=== PATIENT | male | born 1955 | race Caucasian/White ===

== ENCOUNTER 2017-03-29 18:00 | Emergency (ER) | payer OTHER ==
[2017-03-29 18:19] LABS: BASOPHILS 0.4 % (0.0-2.0); EOSINOPHILS 0.5 % (0.0-6.0); HEMATOCRIT 42.3 % (42.0-54.0); HEMOGLOBIN 14.6 g/dL (14.0-18.0); LYMPHOCYTES 22.7 % (20.0-40.0); LYMPHOCYTES# 1.5 X 10^3uL (0.8-3.8); MEAN CELL VOLUME 95.6 fL (80.0-100.0); MEAN CORPUS. HGB CONCENTRATION 34.5 g/dL (32.0-36.0); MEAN PLATELET VOLUME 6.2 fL (7.4-10.4); MONOCYTES 8.8 % (2.0-10.0); MONOCYTES# 0.6 X 10^3uL (0.2-1.0); NEUTROPHILS 67.6 % (54.0-75.0); NEUTROPHILS# 4.5 X 10^3uL (2.6-6.7); PLATELET COUNT 226 X 10^3uL (130-440); RED BLOOD COUNT 4.43 X 10^6uL (4.20-6.10); RED CELL DISTRIBUTION WIDTH 13.7 % (11.5-14.5); WHITE BLOOD COUNT 6.6 X 10^3uL (3.9-10.7)
[2017-03-29] MEDS ORDERED: NITROGLYCERIN 0.4 MG TAB.SUBL SUBLINGUAL ONE (18:19)
[2017-03-29 18:31] LABS: BLOOD UREA NITROGEN 14 mg/dL (9-20); CALCIUM 9.7 mg/dL (8.4-10.2); CHLORIDE 98 mmol/L (98-107); EST GLOMERULAR FILTRATION RATE > 60 mL/min; GLUCOSE 104 mg/dL (70-100); MAGNESIUM 1.6 mg/dL (1.6-2.3); SODIUM 141 mmol/L (137-145)
[2017-03-29 18:33] LABS: INR 0.9
[2017-03-29] MEDS ORDERED: MORPHINE SULFATE 4 MG/ML SYR ONE (18:34)
[2017-03-29 18:42] LABS: TROPONIN I 0.015 ng/mL (0.00-0.034)
--- NOTE | 2017-03-29 19:25 | ER NURSING DOCUMENTATION ---
Nurse's Notes [facility] Name:Jerardo Beal Age:61 yrs Sex:Male :1955 Arrival Date:03/29/2017 Time:18:00 BedTrauma-C Private MD: Diagnosis:Chest Pain, Other Presentation: 03/29 18:00 Presenting complaint: Patient states: pt states that he has not been feeling well all st day. He states that he has been nauseated, lightheaded. Transition of care: patient was not received from another setting of care. AIR CAT ACTIVATION no. Asprin Given Taken by pt captain's assistant Other amount taken captain's assistant: two full asprins. 18:00 Method Of Arrival: Private Vehicle st 18:08 Acuity: LOUISE 2 st Triage Assessment: 18:15 General: Appears uncomfortable, Behavior is agitated, anxious, cooperative. Pain: st Complains of pain in chest Pain currently is 7 out of 10 on a pain scale. Quality of pain is described as pressure, Pain began all day. Cardiovascular: Capillary refill < 3 seconds Heart tones present Reports lightheadedness, Nausea shortness of breath Rhythm is sinus tachycardia. Respiratory: Airway is patent Respiratory effort is even, unlabored, Respiratory pattern is regular, symmetrical. GI: Abdomen is obese, Abd is soft and non tender X 4 quads. Reports nausea. Historical: - Allergies: No known drug Allergies; - Home Meds: 1. Simvastatin Oral 2. losartan oral - PMHx: Hypertension; - PSHx: KNEE SURGERY; - Tetanus: > 10 years will f/u with PCP. - Ebola Screening: : Patient denies exposure to infectious person. Patient denies travel to an Ebola-affected area in the 21 days before illness onset. . - Immunization history: Flu Vaccine < 1 year. - Social history: Smoking status: Patient states was never smoker of tobacco. Patient uses alcohol Patient/guardian denies using marijuana. Screenin:19 Infectious Disease Risk None. Abuse screen: Denies threats or abuse. Denies injuries st from another. pt feels safe at home. Nutritional screening: No deficits noted. Assessment: 18:34 General: pt resting quietly. pt is less anxious now but states that he still feels SOB..st 18:40 Reassessment: Patient states feeling better. PT CONTINUES WITH CHEST TIGHTNESS AND mk2 FEELING SOB. LUNGS ARE CTA, NO RESPIRATORY DISTRESS, PT IS ALERT AND ORIENTED. PT ALSO COMPLAINS OF DIZZINESS. . 19:22 Pain: Pain does not radiate. 2 Vital Signs: 18:02 BP 189 / 114 (auto/); st 18:06 Pulse 94 MON; Resp 14; Temp 97.6; Pulse Ox 96% ; st 18:07 BP 157 / 107 (auto/); st 18:11 Pulse 103 MON; Resp 16; Pulse Ox 96% ; Pain 7/10; st 18:21 Pain 7/10; st 18:32 BP 150 / 95; Pulse 92; Resp 10; Pulse Ox 96% on 2 lpm NC; Pain 6/10; mk2 18:33 Pain 5/10; st 18:45 Pain 3/10; mk2 19:21 BP 179 / 98; Pulse 82; Resp 16; Pulse Ox 93% on R/A; Pain 4/10; mk2 18:33 pt staes that it is not pain just tichtness. ED Course: 18:00 EKG done per protocol. Performed by ED Staff. Shown to ED physician. vt1 18:00 EKG done. (by ED staff). Reviewed by Ean Thompson MD. vt1 18:01 Patient arrived in ED. ama 18:03 Ean Thompson MD is Attending Physician. jm 18:04 Shantal Estrada RN is Primary Nurse. st 18:07 Valuables Remains with patient Patient has correct armband on for positive em3 identification. Placed in gown. Bed in low position. Call light in reach. Side rails up X2. 18:[address] 18:09 EKG attached vt1 18:10 Inserted peripheral IV: 20 gauge in right antecubital area and blood collected. Oxygen st Oxygen administration via nasal cannula @ 2L/min. 18:11 Port Xray Completed. pm1 18:19 banquet houseperson on. Pulse ox on. NIBP on. st 18:39 Resting quietly. mk2 18:39 Report received from SHANTAL. Warm blanket given. mk2 18:45 Primary Nurse role handed off by Shantal Estrada RN 2 18:45 Darshana Forrest, RN is Primary Nurse. mk2 19:23 PT continues with left sided cp 4/10 and appears slightly shaky. Dr. Hahn educates pt mk2 on his new RBBB and pt states he feels comfortable going home and will call if he needs anything. Pt ambulates out of E.D with steady gait. Administered Medications: 18:08 Drug: Nitroglycerin 0.4 mg; Route: Sublingual; st 18:22 Follow up: Response: Pain is unchanged, physician notified st 18:22 Drug: morphine 4 mg; Route: IVP; Site: right antecubital; st 18:32 Follow up: BP 150 / 95; Pulse 92 bpm; Resp 10 bpm; Pulse Ox 96% 2 lpm Nasal Cannula; 2 Pain 6/10 Adult 18:33 Follow up: Response: Pain is decreased st Outcome: 19:05 Discharge ordered by . medhat 19:21 Discharged to home ambulatory. [facility] 19:21 Condition: stable 19:21 Discharge Assessment: Patient awake, alert and oriented x 3. No cognitive and/or functional deficits noted. Patient verbalized understanding of disposition instructions. 19:21 Discharge instructions given to patient, Instructed on discharge instructions, follow up and referral plans. medication usage. 19:21 IV D/[place] 19:25 Patient left the ED. [facility] 03/30 14:21 Discharge F/U Call: Unable to reach: no answer st Signatures: Shantal Estrada RN RN Luz Elena Gusman RN RN sc1 Ean Thompson MD MD jm Kruger, Meg RN RN mk2 Taniya Linn pm1 Avery Pinon em3 Bobby Villela, Reg Reg ama
--- NOTE | 2017-03-29 19:25 | ER PHYSICIAN DOCUMENTATION ---
Physician Documentation [facility] Name:Jerardo Beal Age:61 yrs Sex:Male :1955 Arrival Date:03/29/2017 Time:18:00 BedTrauma-C Private MD: Ean Lopez Disposition: 03/29/17 19:05 Discharged to Home/Self Care. Impression: Chest Pain, Other. - Condition is Good. - Discharge Instructions: Chest Pain - CHEST PAIN, Uncertain Cause. - Medical Reconciliation form form. - Follow up: Private Physician; When: 2 - 3 days; Reason: Continuance of care. - Problem is new. - Symptoms have improved. HPI: 03/29 18:18 This 61 yrs old Male presents to ER via Private Vehicle with complaints of jm Chest Pain. 18:18 The patient or guardian reports chest pain that is located primarily in the substernal jm area. Onset: 3.5 hour(s) ago. The pain does not radiate. There has been no movement of pain. Associated signs and symptoms: Pertinent positives: dizziness, nausea, shortness of breath. The chest pain is described as a heaviness. Duration: The patient or guardian reports a single episode, that lasted 3 hour(s). Modifying factors: the symptoms are aggravated by nothing. Severity of pain: in the emergency department the pain has improved markedly. Risk factors for coronary artery disease include: This patient has a history of hypertension. The patient has not experienced similar symptoms in the past. The patient has not recently seen a physician. Pt here from [place] for the past week. He flew out. He's been hiking and biking and keeping up pretty well, but today didn't feel right. He was dizzy, queazy, and SOB. He soon had some tightness in the chest. . Historical: - Allergies: No known drug Allergies; - Home Meds: 1. Simvastatin Oral 2. losartan oral - PMHx: Hypertension; - PSHx: KNEE SURGERY; - Tetanus: > 10 years will f/u with PCP. - Ebola Screening: : Patient denies exposure to infectious person. Patient denies travel to an Ebola-affected area in the 21 days before illness onset. . - Immunization history: Flu Vaccine < 1 year. - Social history: Smoking status: Patient states was never smoker of tobacco. Patient uses alcohol Patient/guardian denies using marijuana. ROS: 18:20 Constitutional: Negative for fatigue, fever. jm 18:20 ENT: Negative for rhinorrhea, sinus congestion, sinus pain, sore throat. 18:20 Cardiovascular: Positive for chest pain, Negative for edema, orthopnea, palpitations, paroxysmal nocturnal dyspnea. 18:20 Respiratory: Positive for shortness of breath. 18:20 Abdomen/GI: Negative for abdominal pain, nausea, vomiting, diarrhea. 18:20 MS/extremity: Negative for swelling, tenderness. 18:20 Skin: Negative for swelling. 18:20 Neuro: Positive for dizziness, Negative for headache. 18:20 Psych: Positive for anxiety, Negative for drug dependence, alcohol dependence. 18:20 All other systems are negative. Exam: 18:21 Constitutional: The patient appears alert, awake, anxious. 18:21 Eyes: Periorbital structures: appear normal, Conjunctiva: normal. 18:21 ENT: Mouth: is normal, Voice: is normal. 18:21 Neck: Thyroid: appears normal, Trachea: is midline with no obvious abnormalities. 18:21 Cardiovascular: Rate: tachycardic, Rhythm: regular, Pulses: Pulses are 2+ in right dorsalis pedis artery and left dorsalis pedis artery. 18:21 Respiratory: the patient does not display signs of respiratory distress, Respirations: normal, Breath sounds: are normal. 18:21 Back: CVA tenderness, is absent, vertebral tenderness, is not appreciated. 18:21 Musculoskeletal/extremity: Pulses: Sensation intact. 18:21 Skin: cellulitis, is not appreciated. 18:21 Neuro: Mentation: is normal, Memory: is normal. 18:21 Psych: Behavior/mood is pleasant, cooperative, anxious, Affect is calm. Vital Signs: 18:02 BP 189 / 114 (auto/); st 18:06 Pulse 94 MON; Resp 14; Temp 97.6; Pulse Ox 96% ; st 18:07 BP 157 / 107 (auto/); st 18:11 Pulse 103 MON; Resp 16; Pulse Ox 96% ; Pain 7/10; st 18:21 Pain 7/10; st 18:32 BP 150 / 95; Pulse 92; Resp 10; Pulse Ox 96% on 2 lpm NC; Pain 6/10; mk2 18:33 Pain 5/10; st 18:45 Pain 3/10; mk2 19:21 BP 179 / 98; Pulse 82; Resp 16; Pulse Ox 93% on R/A; Pain 4/10; mk2 18:33 pt staes that it is not pain just tichtness. st MDM: 18:03 Patient medically screened. 18:09 EKG attached sc 18:23 Differential diagnosis: acute myocardial infarction, chest wall pain, pulmonary jm embolus. The patient was not given aspirin in the Emergency Department due to already had 2 full ASA today. Data reviewed: vital signs, nurses notes, lab test result(s), EKG, radiologic studies. 03/29 18:30 Order name: CBC AUTO DIF, MDIF/RMOR IF IND; Complete Time: 18:58 EDLA / 18:44 Order name: BASIC METABOLIC PANEL; Complete Time: 18:58 EDLA / 18:44 Order name: MAGNESIUM; Complete Time: 18:58 EDMS / 18:44 Order name: TROPONIN I; Complete Time: 18:58 EDLA / 18:58 Order name: PROTIME/INR; Complete Time: 18:58 EDLA /02 18:58 Order name: DDIMER; Complete Time: 18:58 EDLA /02 21:40 Order name: CHEST; [place] [address] [facility] / 18:08 Order name: 12-lead EKG; Complete Time: 18:09 / 18:08 Order name: Iv Saline Lock; Complete Time: 18:10 / 18:08 Order name: Place Patient On Monitor; Complete Time: 18:10 03/29 18:08 Order name: Pulse Ox Continuous; Complete Time: 18:10 Dispensed Medications: 18:08 Drug: Nitroglycerin 0.4 mg; Route: Sublingual; st 18:22 Follow up: Response: Pain is unchanged, physician notified st 18:22 Drug: morphine 4 mg; Route: IVP; Site: right antecubital; st 18:32 Follow up: BP 150 / 95; Pulse 92 bpm; Resp 10 bpm; Pulse Ox 96% 2 lpm Nasal Cannula; mk2 Pain 6/10 Adult 18:33 Follow up: Response: Pain is decreased st Signatures: Shantal Estrada RN RN st Campbell, Sandy, RN RN [facility] Thompson, Ean, MD MD jm Lon, Darshana, RN RN mk2
--- NOTE | 2017-03-29 21:39 | RADIOLOGY REPORT ---
HISTORY: Chest pain COMPARISON: None. FINDINGS: 1 view of the chest obtained. The heart size is normal. The lungs are clear and there is no pneumoth orax. There are old healed right fifth and sixth rib fractures. The chest wall appears otherwise unre markable. No airspace infiltrate is demonstrated. IMPRESSION: No active cardiopulmonary disease. No etiology for chest pain demonstrated. Final Electronic Signature: This report was electronically signed by Yovanny De La Fuente MD on 03/29/2017 9:37 PM. nate /
== END 2017-03-29 19:25 | disposition home or self-care (01) ==
LOC: ER 18:00
DX: R07.89 Other chest pain (principal); R06.02 Shortness of breath; R42 Dizziness and giddiness; R00.0 Tachycardia, unspecified; I45.10 Unspecified right bundle-branch block; I10 Essential (primary) hypertension; Z79.899 Other long term (current) drug therapy
CPT/HCPCS: 71010; 80048; 83735; 84484; 85025; 85379; 85610; 93005; 96374; 99285; J2270